=== PATIENT | male | born 1980 | race Caucasian/White ===

== ENCOUNTER 2018-01-23 20:37 | Emergency (ER) | payer OTHER ==
--- NOTE | 2018-01-23 20:39 | UC ---
Lower Extremity/Ankle HPI - HPI Summary HPI Summary: 37 yo male presents with wound to bottom of left foot. He tells me that about 5 days ago he had a blister on this area that popped. This morning he noticed small red streaks coming up the arch of his foot from the wound. He is diabetic and says his sugars have been running "a bit high" around 220. He has not been dressing or covering the wound. Denies fever, chills, or injury. - History of Current Complaint Stated Complaint: LEFT FOOT COMPLAINT Time Seen by Provider: 01/23/18 20:38 Hx Obtained From: Patient Onset/Duration: Gradual Onset Severity Currently: None - Allergies/Home Medications Allergies/Adverse Reactions: Allergies Allergy/AdvReac Type Severity Reaction Status Date / Time acetaminophen [From Vicodin] Allergy Rash Verified 01/23/18 20:44 hydrocodone [From Vicodin] Allergy Rash Verified 01/23/18 20:44 PMH/Surg Hx/FS Hx/Imm Hx Endocrine History: Diabetes - Surgical History Surgical History: None Surgery Procedure, Year, and Place: Left knee surgery 20 years ago. T&A - Family History Known Family History: Positive: Unknown - Social History Occupation: Employed Full-time Lives: With Family Alcohol Use: Occasionally Substance Use Type: None Smoking Status (MU): Former Smoker Review of Systems Constitutional: Negative Skin: Other - Open wound left foot Respiratory: Negative Cardiovascular: Negative Gastrointestinal: Negative Neurovascular: Negative Musculoskeletal: Negative Neurological: Negative Psychological: Negative All Other Systems Reviewed And Are Negative: Yes Physical Exam - Summary Physical Exam Summary: GENERAL: NAD. WDWN. No pain distress. SKIN: LEFT FOOT: Plantar surface with 7mm grade 2-3 ulcer. Dry without drainage or exudate. No eschar or granulation tissue. 2.0cm linear streak extending from ulcer up arch of foot. NECK: Supple. Nontender. No lymphadenopathy. CHEST: No accessory muscle use. Breathing comfortably and in no distress. CV: Pulses intact PT and DP. Brisk cap refill. NEURO: Alert. Sensations intact and symmetric B/L LEs PSYCH: Age appropriate behavior. Triage Information Reviewed: Yes Vital Signs: Vital Signs: Temp Pulse Resp BP Pulse Ox 97 F 92 17 150/86 98 01/23/18 20:42 01/23/18 20:42 01/23/18 20:42 01/23/18 20:42 01/23/18 20:42 Lower Extremity Course/Dx - Course Course Of Treatment: Diabetic ulcer to left foot. Pt says that he has been on augmentin in the past and it "hasn't touched him". Therefore will start him with Clindamycin and dress the wound with bacitracin and telfa. Advised to f/u with podiatry for further treatment and monitoring. Advised to change dressing daily. Wound culture was obtained today. - Differential Dx/Diagnosis Provider Diagnoses: diabetic foot ulcer left Discharge - Sign-Out/Discharge Documenting (check all that apply): Discharge/Admit/Transfer - Discharge Plan Condition: Stable Disposition: HOME Prescriptions: Clindamycin Cap(NF) [Clindamycin Cap 300 mg Cap(NF)] 300 mg PO TID #30 cap Patient Education Materials: Foot Care for People with Diabetes (ED), Diabetic Foot Ulcers (ED) Referrals: Tonio Walters MD [Primary Care Provider] - Jorge AKHTAR,Marco A Thomas [Doctor of Podiatric Medicine] - As Soon As Possible Additional Instructions: If you develop a fever, shortness of breath, chest pain, new or worsening symptoms - please call your PCP or go to the ED. Your blood pressure was high at todays visit. Please see your primary provider within 4 weeks for recheck and re-evaluation. 1) Change the dressing daily 2) Please call Dr. Patel at the number below to schedule a follow up appointment as soon as possible for continued monitoring of your foot infection - Billing Disposition and Condition Condition: STABLE Disposition: Home
[2018-01-23 20:47] VITALS: BP 150/86
[2018-01-23] MEDS ORDERED: Clindamycin CAP* 150 MG PO ONE (20:54)
== END 2018-01-23 21:13 | disposition home or self-care (01) ==
LOC: UCCORT 20:37
DX: E11.621 Type 2 diabetes mellitus with foot ulcer (principal); L97.529 Non-pressure chronic ulcer of other part of left foot with unspecified severity; Z88.6 Allergy status to analgesic agent; Z88.5 Allergy status to narcotic agent; Z87.891 Personal history of nicotine dependence
CPT/HCPCS: 87070; 87077; 87186; 87205; 87640; 87641; 99212; A9270-GY; G0463

== ENCOUNTER → 2018-06-25 19:00 | Emergency (ER) | payer SELFPAY ==
[2018-06-25 19:12] VITALS: BP 152/84
== END | disposition left against medical advice (07) ==
LOC: ED 19:00
DX: Z91.81 History of falling (principal); Z53.21 Procedure and treatment not carried out due to patient leaving prior to being seen by health care provider

== ENCOUNTER 2019-01-31 08:54 | Emergency (ER) | payer OTHER ==
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
[2019-01-31 09:43] LABS: ABS Eosinophils 0.1 10^3/ul (0-0.6); ABS Lymphocytes 1.1 10^3/ul (1.0-4.8); ABS Monocytes 0.4 10^3/ul (0-0.8); ABS Neutrophils 5.5 10^3/ul (1.5-7.7); Eosinophil % 0.7 %; Hematocrit 48 % (42-52); Hemoglobin 16.5 g/dL (14.0-18.0); Lymphocyte % 15.6 %; Mean Corpuscular HGB Conc 34 g/dL (31-36); Mean Corpuscular Hemoglobin 29 pg (27-31); Mean Corpuscular Volume 84 fL (80-94); Mean Platelet Volume 10.1 fL (7.4-10.4); Nucleated Red Blood Cells % 0.1; Platelet Count 143 10^3/uL (150-450); Red Blood Count 5.71 10^6 /uL (4.18-5.48); Red Cell Distribution Width 14 % (10-15); White Blood Count 7.1 10^3/uL (3.5-10.8)
[2019-01-31 09:47] LABS: Urine Appearance Clear; Urine Bacteria Absent (Absent); Urine Bilirubin Negative (Negative); Urine Blood 1+ (Negative); Urine Color Yellow; Urine Glucose 3+(>=500 mg/dL) (Negative); Urine Ketones 1+ (Negative); Urine Nitrite Negative (Negative); Urine Protein Negative (Negative); Urine Red Blood Cell 1+(3-5/hpf) (Absent); Urine Specific Gravity 1.029 (1.010-1.030); Urine Urobilinogen Negative (Negative); Urine White Blood Cell Absent (Absent)
[2019-01-31 09:54] LABS: Albumin 4.1 g/dL (3.2-5.2); Albumin/Globulin Ratio 1.4 (1-3); BUN/Creatinine Ratio 12.4 (8-20); Calcium 9.1 mg/dL (8.6-10.3); EGFR African American 96.7 (>60); EGFR Non-African American 79.9 (>60); Globulin 2.9 g/dL (2-4); Potassium 4.1 mmol/L (3.5-5.0); Total Bilirubin 0.8 mg/dL (0.2-1.0)
[2019-01-31] MEDS ORDERED: Iodixanol* (CONTRAST) 320 MG/ML 100 ML SDV IV ONE (09:58)
[2019-01-31] MEDS ORDERED: NS 0.9% 1000 ML** 1,000 ML IV ONE (11:03)
[2019-01-31] MEDS ORDERED: Insulin REGULAR(*) 1 UNITS UNIT IV PUSH ONE ×2 (11:05→11:18)
[2019-01-31 12:18] VITALS: BP 138/98
== END 2019-01-31 12:17 | disposition left against medical advice (07) ==
LOC: ED 08:54
DX: S00.81XA Abrasion of other part of head, initial encounter (principal); E11.649 Type 2 diabetes mellitus with hypoglycemia without coma; R20.8 Other disturbances of skin sensation; V49.40XA Driver injured in collision with unspecified motor vehicles in traffic accident, initial encounter; Z87.891 Personal history of nicotine dependence; Z88.5 Allergy status to narcotic agent; Z88.8 Allergy status to other drugs, medicaments and biological substances
CPT/HCPCS: 36415; 70450; 71260; 80053; 81003; 81015; 85025; 93005; 96361; 96374; 96375; 99282; Q9967